=== PATIENT | male | born 1945 | race Caucasian/White ===

== ENCOUNTER → 2016-10-30 | Outpatient (CLI) | payer MEDICARE, OTHER ==
--- NOTE | 2016-10-30 21:44 | CONS ---
DATE OF CONSULTATION: This is a 71-year-old male patient with a known history of obstructive sleep apnea and that was established at the [facility] in [place]. The patient has been utilizing CPAP therapy for many years. The patient is coming in feeling tired and he reports his sleep quality has gotten worse. He is looking for further advice. He is interested in updating his CPAP machine knowing that this is the same machine the patient has used for more than 10 years. Note that he is currently snoring. He stops breathing even while on the treatment. He goes to bed around 10:00 p.m., wakes up at 4:00 a.m. in the morning and he is averaging around 6 hours of sleep on a daily basis. He wakes up tired and he is having trouble paying attention and memory concentration, and some symptoms of depression in addition. He has gained some weight over the years and he is up by around 5 to 10 pounds, yet there is no significant ( ) weight gain based on the reported history. PAST MEDICAL HISTORY: Obesity. Obstructive sleep apnea, hypothyroidism, coronary artery disease with previous bypass surgery. Surgical history includes coronary artery bypass surgery and back surgery. DRUG ALLERGIES: IV DYE. Outpatient medication list includes: 1. Levothyroxine. 2. Lasix. 3. Metoprolol. 4. Multivitamins. SOCIAL HISTORY: The patient is an ex-smoker. No history of alcohol. No history of IV drugs. FAMILY HISTORY: Negative for sleep apnea. REVIEW OF SYSTEMS: 14 point review of systems was done and the positive findings mentioned above in the history of present illness. BP is 119/63, pulse 79, respirations 18, temperature 98.1, saturation 92% on room air. [place] score is 14. BMI is 39.1. Neck size 19 inches. Weight is 287. GENERAL APPEARANCE: Calm, comfortable. HEENT: Short neck, crowding posterior pharynx. Mallampati class IV. LUNGS: Clear to auscultation. HEART: Sounds are regular rate and rhythm. Normal S1, S2. No S3. No murmurs. ABDOMEN: Soft, nontender. No organomegaly. EXTREMITIES: No edema. No cyanosis, or clubbing. IMPRESSION: 1. Obstructive sleep apnea, symptomatic. The patient has treated for sleep apnea for more than 10 years and coming in for reevaluation. 2. Hypersomnia. [place] score of 14. 3. Coronary artery disease previous bypass surgery. 4. Hypothyroidism. 5. Obesity with a body mass index of 39.1. PLAN: 1. Proceed with a split-night study. This will be a good location to confirm the presence of sleep apnea and proceed with a CPAP titration following that, during this, the patient will be given a different CPAP machine and his pressure will be updated and the patient will be given the appropriate mask interface. 2. Encourage weight loss. 3. Improve sleep hygiene measures. 4. Will continue to follow.
== END | disposition home or self-care (01) ==
LOC: SLEEP 14:26
PROVIDERS: ATTEND Internal Medicine Critical Care Medicine
DX: G47.33 Obstructive sleep apnea (adult) (pediatric) (principal); E66.9 Obesity, unspecified; E03.9 Hypothyroidism, unspecified; I25.10 Atherosclerotic heart disease of native coronary artery without angina pectoris; Z79.899 Other long term (current) drug therapy; Z87.891 Personal history of nicotine dependence; Z68.39 Body mass index [BMI] 39.0-39.9, adult; G47.10 Hypersomnia, unspecified
CPT/HCPCS: 99211

== ENCOUNTER 2018-09-04 17:18 | Emergency (ER) | payer MEDICARE, OTHER ==
[2018-09-04 17:26] VITALS: BP 146/75; PULSE 79; RESP 18; TEMP 98.7
--- NOTE | 2018-09-04 18:05 | ED ---
Fall HPI - General Chief Complaint: Fall Stated Complaint: fall 5' from ladder, head injury Time Seen by Provider: 09/04/18 17:29 Source: patient Mode of arrival: ambulatory - History of Present Illness Initial Comments: This is a 72-year-old male who states that 2 days ago he fell trying to step off a 3 foot high ladder and he struck the back was head on the right side. No loss of consciousness he does have a history of episodic dizziness he states nothing on the ordinary he does have a history of glaucoma and a history of cataract replacement. He was seen by his primary care provider today and due to some sluggishness of his left pupil was sent here for CAT scan or further evaluation. He denies any neck or back pain loss of function to his upper or lower extremities he does have a localized headache at the impact site had no open wounds reported. No fevers chills nausea vomiting sweats or other symptoms and no other modifying factors he is on no blood thinners. MD Complaint: fall - Related Data Home Medications Medication Instructions Recorded Confirmed Ascorbic Acid [Vitamin C] 500 mg PO DAILY 09/04/18 09/04/18 Aspirin [Adult Low Dose Aspirin EC] 81 mg PO DAILY 09/04/18 09/04/18 Furosemide Unknown 1 tab PO DAILY 09/04/18 09/04/18 Glucosamine Sulfate 500 mg PO DAILY 09/04/18 09/04/18 Levothyroxine Sodium [Synthroid] 25 mcg PO DAILY 09/04/18 09/04/18 Omeprazole Unknown 1 cap PO DAILY 09/04/18 09/04/18 Thiamine [Vitamin B-1] 50 mg PO DAILY 09/04/18 09/04/18 metFORMIN HCL [Glucophage] 250 mg PO QAM 09/04/18 09/04/18 traMADol HCL [Ultram] 50 mg PO BID PRN 09/04/18 09/04/18 Previous Rx's Medication Instructions Recorded Amoxicillin/Potassium Clav 1 tab PO Q12HR #20 tab 09/04/18 [Augmentin 875-125 Tablet] Ibuprofen 800 mg PO Q6HR PRN #20 tablet 09/04/18 Allergies Allergy/AdvReac Type Severity Reaction Status Date / Time Iodinated Contrast- Oral and AdvReac HEADACHE Verified 09/04/18 17:59 IV Dye Review of Systems ROS Statement: Those systems with pertinent positive or pertinent negative responses have been documented in the HPI. ROS Other: All systems not noted in ROS Statement are negative. Past Medical History Past Medical History: Heart Failure, Diabetes Mellitus, GERD/Reflux Additional Past Medical History / Comment(s): agent orange History of Any Multi-Drug Resistant Organisms: None Reported Past Surgical History: Adenoidectomy, Back Surgery, Coronary Bypass/CABG, Tonsillectomy Additional Past Surgical History / Comment(s): hydrocel Past Psychological History: PTSD Smoking Status: Former smoker Past Alcohol Use History: None Reported Past Drug Use History: None Reported General Exam - General Exam Comments Initial Comments: Is a well-developed well-nourished awake alert oriented times female he has a [place] Coma Scale of 15 Limitations: no limitations General appearance: alert, in no apparent distress Head exam: Present: normocephalic, other (Area contusion noted over the right parietal occipital scalp no step-off crepitation no foreign body.) Eye exam: Present: normal appearance, PERRL, EOMI. Absent: scleral icterus, conjunctival injection, periorbital swelling ENT exam: Present: normal exam, mucous membranes moist Neck exam: Present: normal inspection, full ROM. Absent: tenderness, meningismus, lymphadenopathy Respiratory exam: Present: normal lung sounds bilaterally. Absent: respiratory distress, wheezes, rales, rhonchi, stridor Cardiovascular Exam: Present: regular rate, normal rhythm, normal heart sounds. Absent: systolic murmur, diastolic murmur, rubs, gallop, clicks GI/Abdominal exam: Present: soft, normal bowel sounds. Absent: distended, tenderness, guarding, rebound, rigid Extremities exam: Present: normal inspection, full ROM, normal capillary refill. Absent: tenderness, pedal edema, joint swelling, calf tenderness Back exam: Present: normal inspection Neurological exam: Present: alert, oriented X3, CN II-XII intact Psychiatric exam: Present: normal affect, normal mood Skin exam: Present: warm, dry, intact, normal color. Absent: rash Course Vital Signs 09/04/18 17:21 Temperature 98.7 F Pulse Rate 79 Respiratory 18 Rate Blood Pressure 146/75 O2 Sat by Pulse 98 Oximetry Medical Decision Making - Medical Decision Making I did discuss the findings with the patient he will be discharged I will place him on medication for the sinusitis. - Radiology Data Radiology results: report reviewed (I did review the imaging and report evidence of sinusitis no intracranial findings are seen.), image reviewed Disposition Clinical Impression: Scalp contusion, Sinusitis, Fall Disposition: HOME SELF-CARE Condition: Good Prescriptions: Amoxicillin/Potassium Clav [Augmentin 875-125 Tablet] 1 tab PO Q12HR #20 tab Ibuprofen 800 mg PO Q6HR PRN #20 tablet PRN Reason: Pain Is patient prescribed a controlled substance at d/c from ED?: No Referrals: [facility] [Primary Care Provider] - 1-2 days
--- NOTE | 2018-09-04 18:33 | CT ---
EXAMINATION TYPE: CT brain wo con DATE OF EXAM: 09/04/2018 COMPARISON: None HISTORY: Head injury after fall CT DLP: 1127.4 mGycm Automated exposure control for dose reduction was used. FINDINGS: There is some cerebral cortical atrophy. There is no mass effect nor midline shift. There is no sign of intracranial hemorrhage. There is mild mucosal thickening in the ethmoid sinuses. There is fluid l evel in the left maxillary sinus. Calvarium is intact. IMPRESSION: MILD ATROPHY. NO ACUTE INTRACRANIAL ABNORMALITY. MILD SINUSITIS.
== END 2018-09-04 19:06 | disposition home or self-care (01) ==
LOC: EC 17:18
DX: S00.03XA Contusion of scalp, initial encounter (principal); J32.9 Chronic sinusitis, unspecified; I50.9 Heart failure, unspecified; K21.9 Gastro-esophageal reflux disease without esophagitis; E11.9 Type 2 diabetes mellitus without complications; F43.10 Post-traumatic stress disorder, unspecified; Z87.891 Personal history of nicotine dependence; Z79.84 Long term (current) use of oral hypoglycemic drugs; Z79.82 Long term (current) use of aspirin; Z79.899 Other long term (current) drug therapy; Z91.041 Radiographic dye allergy status; Z95.1 Presence of aortocoronary bypass graft; W11.XXXA Fall on and from ladder, initial encounter
CPT/HCPCS: 70450; 99283

== ENCOUNTER → 2018-12-26 | Outpatient (CLI) | payer OTHER ==
--- NOTE | 2018-12-26 20:49 | CT ---
"EXAMINATION TYPE: CT abdomen pelvis wo con DATE OF EXAM: 12/26/2018 COMPARISON: None HISTORY: Abominal swelling, mass. Pt said abdomen is hard to the touch. CT DLP: 1151 mGycm Automated exposure control for dose reduction was used. TECHNIQUE: Helical acquisition of images was performed from the lung bases through the pelvis. FINDINGS: There is abdominal distention which appears secondary to innumerable masses likely represen ting conglomerate lymphadenopathy. This extends throughout the abdomen and retroperitoneum into the p devin. Bladder wall demonstrates mild thickening. Atherosclerotic change of aorta with no evidence of aneury sm. Parapelvic cyst on the left suspected with no overt hydronephrosis or evidence of renal calculi. Tiny hypodensities in the posterior segment of the right lobe the liver and within the dome of the li regla are too small to characterize. The largest is seen at the dome of the liver measuring approximate ly 5 Hounsfield units and 9 mm most typical of cyst. No obvious gallstones. No free fluid. Multilevel degenerative disc disease noted. Appears to be sugge stion of previous surgery involving the lower lumbar spine correlate clinically. AIR WITHIN THE SI JOINT ON THE RIGHT NOTED COMPATIBLE WITH ARTHROPATHY EXTENDING INTO THE SOFT TISSUE S. PROSTATE HYPERTROPHY. IMPRESSION: INNUMERABLE SOFT TISSUE MASSES SEEN THROUGHOUT THE ABDOMEN, RETROPERITONEUM AND PELVIS RESULTING IN A BDOMINAL DISTENTION MOST LIKELY ON THE BASIS OF MASSIVE CONGLOMERATE LYMPHADENOPATHY. LYMPHOMA WOULD BE FELT TO BE THE MOST LIKELY ETIOLOGY, CORRELATE CLINICALLY. RECOMMEND A CONTRAST EXAM TO DETERMINE RELATIONSHIP OF THE MASS ATTEMPTED TO THE SMALL BOWEL WHICH IS NOT WELL DEMONSTRATED AND MAY BE COMPR ESSED DUE TO THE MASSIVE ADENOPATHY. A [place] level critical message alert has been initiated for ADITI Noguera via the [employer] | Critical Results System on 12/26/2018 8:45 PM. This message alert has been sent to ADITI Noguera via the preferences provided by the clinician for the receipt of Radiology Critical Findings. Message ID [id number]."
== END | disposition home or self-care (01) ==
LOC: RADCTMAIN 16:09
PROVIDERS: ATTEND Physician Assistant
DX: R14.0 Abdominal distension (gaseous) (principal)
CPT/HCPCS: 74176

== ENCOUNTER → 2019-01-12 | Outpatient (CLI) | payer OTHER ==
[2019-01-12 11:03] LABS: Blood Urea Nitrogen 30 mg/dL (9-20)
--- NOTE | 2019-01-12 12:52 | CT ---
EXAMINATION TYPE: CT abdomen pelvis wo/w con DATE OF EXAM: 01/12/2019 COMPARISON: 12/26/2018 HISTORY: Abnormal CT results. Abdominal swelling. CT DLP: 2757.3 mGycm Automated exposure control for dose reduction was used. TECHNIQUE: Helical acquisition of images was performed from the lung bases through the pelvis. CONTRAST: Performed with Oral Contrast and without and with IV Contrast, patient injected with 100 mL of Isovue M300. FINDINGS: LUNG BASES: Small hiatal hernia and paraesophageal adenopathy are partially visualized. Minimal bibas ilar subsegmental dependent atelectasis is also seen. LIVER/GB: There are scattered hepatic cysts measuring up to 1.6 cm another lesion that are too small to accurately characterize but favored to represent cysts. PANCREAS: Pancreas is somewhat ill-defined given the surrounding similar attenuated masses. No discre te ductal dilatation is identified. SPLEEN: The spleen is nonenlarged measuring 12.6 cm in craniocaudal dimension.. ADRENALS: No significant abnormality is seen. KIDNEYS: There is minimal left-sided hydronephrosis likely secondary to ureteral narrowing from the r etroperitoneal masses. 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 FREE AIR: No free air is visualized. ADENOPATHY: There is extensive intra-abdominal and pelvic adenopathy in the mesentery, retroperitone um, intraperitoneal, and visualized inferior mediastinum. This demonstrates the same which sign as it encases mesenteric vasculature without compressing the vasculature. This also encases and narrows th e third and fourth portions of the duodenum and displaces small bowel laterally. The largest conglome ration of numerous lymph nodes in the mid abdomen has an overall dimension on series 7 image 37 of 26 .1 x 16.7 cm in transverse by anterior posterior dimension and spanning the retroperitoneal and intra peritoneal locations. The largest left external chain iliac lymph node measures 5.3 x 3.6 cm and the largest visualized posterior mediastinal lymph node measures 2.4 x 1.9 cm. URINARY BLADDER: No significant abnormality is seen. OSSEOUS STRUCTURES: Extensive postsurgical changes of the spine and pelvis are seen with right iliac bone donor site for intervertebral disc autograft. Advanced degenerative changes are also seen of th e spine. Mild femoral acetabular arthropathy. Minimal levoscoliosis of the thoracolumbar junction may be positional. BOWEL: No dilated large or small bowel again bowel loops are displaced laterally due to the extensiv e mediastinal adenopathy and the third and fourth portion of the duodenum are narrowed and encased wi thout obstruction. OTHER: Moderate atherosclerosis of the abdominal aorta and its branches is noted. IMPRESSION: EXTENSIVE INTRA-ABDOMINAL , PELVIC AND POSTERIOR MEDIASTINAL ADENOPATHY MOST CHARACTERISTIC OF LYMPHO MA. LARGE MASSLIKE CONGLOMERATION ENCASES AND NARROWS THE THIRD AND FOURTH PORTIONS OF THE DUODENUM W ITHOUT OBSTRUCTION AND ENCASES MESENTERIC VASCULATURE. THIS ALSO DISPLACES SMALL BOWEL LOOPS LATERALL Y.
== END ==
LOC: RADCTMAIN 10:23
DX: R59.1 Generalized enlarged lymph nodes (principal); R93.3 Abnormal findings on diagnostic imaging of other parts of digestive tract
CPT/HCPCS: 82565; 84520; 74178; 36415; Q9967

== ENCOUNTER 2019-01-29 12:03 | Day surgery (SDC) | payer OTHER ==
[2019-01-29 12:54] LABS: Glucose,Whole Blood 106 mg/dL (75-99)
[2019-01-29 12:59] VITALS: RESP 16; TEMP 97.6
[2019-01-29 14:39] VITALS: BP 121/75; PULSE 76
--- NOTE | 2019-01-29 15:50 | CT ---
EXAMINATION TYPE: CT biopsy subcut tissue DATE OF EXAM: 01/29/2019 HISTORY: Abdominal mass COMPARISON: CT 01/12/2019 Maximal barrier technique was utilized. The skin overlying a suitable path to the retroperitoneal ma ss lesion was localized using CT and the overlying skin was prepped and draped. Lidocaine used for l ocal anesthesia. A skin felisa made with a scalpel. Using CT guidance, access was gained to the lesio n with a 17-gauge guide needle. Coaxial placement of an 18-gauge needle performed and core specimen s ubmitted to cytology. 2 passes were performed in all. Following the procedure no immediate complica tions. The patient is discharged in stable condition. Hemostasis achieved. IMPRESSION: SUCCESSFUL CT GUIDED CORE BIOPSY retroperitoneal mass. PATHOLOGY PENDING. THIS PROCEDURE WAS PERFOR MED BY THE UNDERSIGNED.
== END 2019-01-29 14:30 | disposition home or self-care (01) ==
LOC: RADPROMAIN 12:03
PROVIDERS: ATTEND Internal Medicine Hematology & Oncology
DX: C83.03 Small cell B-cell lymphoma, intra-abdominal lymph nodes (principal)
CPT/HCPCS: 77012; 88305; 88341; 88342

== ENCOUNTER → 2019-02-07 | Outpatient (CLI) | payer OTHER ==
--- NOTE | 2019-02-10 14:51 | PE ---
Nuclear medicine PET/CT HISTORY: Lymphoma, initial Patient received 9.1 mCi F-18 FDG intravenously in delayed scanning was performed from the skull base to the mid thighs. Localization and attenuation correction CT scan was performed. Correlation CT abdomen pelvis 01/12/2017 Neck and chest: There is adenopathy present in the left neck deep to the sternocleidomastoid muscle f rom the level of the hyoid bone extending into the supraclavicular location, supraclavicular nodes ar e present bilaterally with mild hypermetabolic uptake, SUV is 2.6. There is extensive mediastinal, field bpectoral adenopathy present. Nodes in present in the axilla bilaterally. Only mild radio pharmaceuti yanni uptake noted however. Coronary artery calcifications are present. Patient is post median sternoto my. Interstitial changes are present within the lungs. ABDOMEN: Extensive abdominal adenopathy present extending into the mesentery, retroperitoneal regions , bilateral iliac regions. Uptake is mild, SUV proximal 4.3, max SUV 4.8 in the abdomen, retroperiton eal adenopathy SUV 3.1, iliac adenopathy and left 3.2. Osseous structures are within normal limits, no hypermetabolic uptake. Postop changes noted at the rosanna mbosacral spine. IMPRESSION: Findings compatible with lymphoma.
== END | disposition home or self-care (01) ==
LOC: RADPETMAIN 14:04
PROVIDERS: ATTEND Internal Medicine Hematology & Oncology
DX: C83.88 Other non-follicular lymphoma, lymph nodes of multiple sites (principal)
CPT/HCPCS: 78815; A9552

== ENCOUNTER 2019-02-16 06:31 | Day surgery (SDC) | payer OTHER ==
[2019-02-12 13:16] VITALS: BMI 32.3
[~2019-02-16 06:31] MED LIST: LACTATED RINGERS 1,000 ML IV SCH
[2019-02-16 07:04] VITALS: TEMP 97.8
[2019-02-16 07:04] LABS: Glucose,Whole Blood 89 mg/dL (75-99)
[2019-02-16] MEDS ORDERED: PROPOFOL 10 MG/ML 20 ML VIAL IV ONE (07:22)
[2019-02-16 08:10] VITALS: BP 100/59; PULSE 66; RESP 18
--- NOTE | 2019-02-16 08:10 | PCN ---
PROCEDURE NOTE PROCEDURE: Bone marrow aspirate and biopsy. INDICATION: Staging for lymphoma. DESCRIPTION OF PROCEDURE: After obtaining consent from the patient, the procedure was performed in the endoscopy suite, and general anesthesia performed by anesthesia team. The patient was put in the left lateral decubitus position. The right posterior superior iliac crest was localized. Skin was cleansed with ChloraPrep, all sterile procedures were followed. Monoject needle was inserted about 5 mL aspirate was obtained without a core biopsy. Pressure applied afterwards. There was negligible blood loss. The patient tolerated procedure very well without any immediate complications. MMODL / IJN: [id number] /
[2019-02-16 09:46] LABS: Basophils # (A) 0.2 k/uL (0-0.2); Basophils % (A) 1 %; Eosinophils # (A) 4.2 k/uL (0-0.7); Eosinophils % (A) 32 %; HCT 45.7 % (39.0-53.0); HGB 14.6 gm/dL (13.0-17.5); Lymphocytes # (A) 2.2 k/uL (1.0-4.8); Lymphocytes % (A) 17 %; MCH 29.3 pg (25.0-35.0); MCV 91.5 fL (80.0-100.0); Mean Platelet Volume 9.5; Monocytes % (A) 7 %; Neutrophils # (A) 5.6 k/uL (1.3-7.7); Neutrophils % (A) 42 %; Platelet Count 205 k/uL (150-450); RDW 13.7 % (11.5-15.5); WBC 13.4 k/uL (3.8-10.6)
== END 2019-02-16 08:23 | disposition home or self-care (01) ==
LOC: OR 06:31
PROVIDERS: ATTEND Internal Medicine Hematology & Oncology
DX: C91.10 Chronic lymphocytic leukemia of B-cell type not having achieved remission (principal); I25.10 Atherosclerotic heart disease of native coronary artery without angina pectoris; E66.9 Obesity, unspecified; Z68.32 Body mass index [BMI] 32.0-32.9, adult; I10 Essential (primary) hypertension; E03.9 Hypothyroidism, unspecified; F43.10 Post-traumatic stress disorder, unspecified; G47.33 Obstructive sleep apnea (adult) (pediatric); K21.9 Gastro-esophageal reflux disease without esophagitis; Z95.1 Presence of aortocoronary bypass graft; Z87.891 Personal history of nicotine dependence; Z91.041 Radiographic dye allergy status; Z79.84 Long term (current) use of oral hypoglycemic drugs; Z79.82 Long term (current) use of aspirin; Z79.890 Hormone replacement therapy; Z79.899 Other long term (current) drug therapy; Z98.42 Cataract extraction status, left eye; Z98.41 Cataract extraction status, right eye; Z98.1 Arthrodesis status
CPT/HCPCS: 85025; 38222; J2704

== ENCOUNTER → 2019-08-15 | Outpatient (CLI) | payer OTHER ==
--- NOTE | 2019-08-17 11:16 | PE ---
EXAMINATION TYPE: PET CT fusion skull to thigh DATE OF EXAM: 08/15/2019 COMPARISON: PET/CT February 07, 2019 HISTORY: Lymphoma diagnosed on biopsy in January completed chemotherapy July 17, 2019 TECHNIQUE: Following the intravenous administration of 12.3 mCi of F-18 FDG, whole body images are p erformed from the skull base to the midthigh. Images are reviewed on the computer in the coronal, ax ial, and sagittal planes. Reconstructed rotating images are created on independent workstation and r eviewed on the computer. A noncontrast CT is performed in conjunction with the PET scan. SCAN: Subsequent Scan FINDINGS: Mediastinum mean SUV: 1.41s Liver mean SUV: 2.08 SKULL BASE AND NECK: Marked improvement in abnormal enlarged bilateral neck lymph nodes which appear less prominent in size and number bilaterally. No suspicious hypermetabolic uptake is present. CHEST, MEDIASTINUM, AND HILAR REGION: Marked interval improvement in abnormal axillary adenopathy. A few tiny residual lymph nodes are present bilaterally. No new areas of abnormal hypermetabolic uptake . ABDOMEN AND PELVIS: Abnormal adenopathy in the abdomen remains present with confluent appearance and mesenteric fat stranding or edema. Abnormal retroperitoneal adenopathy still seen for reference left paraaortic lymph node measures 2.3 x 2.0 cm axial image 172 infrarenal location. There is however imp rovement in size and degree of mass effect. No abnormal pelvic or groin adenopathy on current study with marked improvement on current study. Onl y subcentimeter lymph nodes are now present. No new areas of abnormal hypermetabolic uptake. OSSEOUS STRUCTURES: No new areas of suspicious hypermetabolic uptake. OTHER CT: Moderate to severe mucosal thickening right maxillary sinus is now present. Post-CABG changes with mediastinal clips and sternal wires is redemonstrated. There is background mod erate emphysematous change most prominent in the upper lungs There are a few scattered hypodense lesions in the liver most prominent in upper aspect felt stable f elt to reflect simple hepatic thin-walled cysts Multilevel spurring and disc space narrowing in the thoracolumbar spine. Slight S-shaped scoliotic cu rvature. Moderate narrowing in both hip joints.. Surgical changes lumbosacral junction redemonstrated . IMPRESSION: Marked improvement in abnormal adenopathy with persistent abnormal abdominal lymph nodes and local mass effect. No suspicious hypermetabolic uptake on current study in any lymph nodes.
== END | disposition home or self-care (01) ==
LOC: RADPETMAIN 08:46
PROVIDERS: ATTEND Internal Medicine Hematology & Oncology
DX: C82.13 Follicular lymphoma grade II, intra-abdominal lymph nodes (principal); Z92.21 Personal history of antineoplastic chemotherapy
CPT/HCPCS: 78815; A9552

== ENCOUNTER → 2020-02-26 | Outpatient (CLI) | payer OTHER ==
--- NOTE | 2020-02-29 16:44 | PE ---
EXAMINATION TYPE: PET CT fusion skull to thigh DATE OF EXAM: 02/26/2020 CLINICAL HISTORY: 74-year-old male C82.13, restaging lymphoma. TECHNIQUE: Following the intravenous administration of 9.58 mCi of F-18 FDG, whole body images are performed from the skull base to the midthigh. Images are reviewed on the computer in the coronal, a xial, and sagittal planes. Reconstructed rotating images are created on independent workstation and reviewed on the computer. A localization and attenuation correction CT is performed in conjunction with the PET scan. Glucose level: 100 mg/dL COMPARISON: 08/15/2019 and 02/07/2019. FINDINGS: PET: Physiologic FDG uptake within the neck. Some muscular uptake noted particularly at the right shoulder but also mild on the other side. Stable 1.3 cm nonmetabolic cutaneous/subcutaneous nodule right paramedian anterior mid chest, probabl e sebaceous cyst. 6 mm peripheral right upper lobe pulmonary nodule, axial image 78 measuring approximately 5 mm on , not clearly seen on 02/07/2019. Follow-up recommended. This is too small for adequate PET rob racterization. Physiologic FDG uptake within the chest. Some muscular uptake along the right lateral intercostal mus culature. Average liver SUV: 2.2. Redemonstrated is extensive mesenteric, retroperitoneal, and upper abdominal lymphadenopathy. Largest retroperitoneal is left paraaortic at 1.6 cm short axis, unchanged. Similar extensive mesenteric lymphadenopathy. Short axis lymph nodes measure up to 1.9 cm on the left side of the abdomen and 1.7 cm right side of the abdomen. Associated luciano mesentery. 1.5 cm bilateral common iliac chain lymph nodes, unchanged from recent prior. These do not show any associated increased hypermetabolism. Physiologic FDG uptake within the pelvis. ATTENUATION CORRECTION CT: Trace air-fluid level left maxillary sinus. Mastoid air cells appear clear. Scattered small cervical lymph nodes are present in the lower neck, unchanged from recent prior. Median sternotomy wires are present with post-CABG changes. Heart borderline enlarged without perica rdial effusion. Bovine configuration to the aortic arch. Large caliber to the main right and left pu lmonary arteries measuring up to 3.1 cm suggesting underlying pulmonary arterial hypertension. Scatt ered small mediastinal lymph nodes are redemonstrated measuring up to 7 mm in the precarinal region. No thoracic lymphadenopathy by CT size criteria. No enlarging thoracic lymph nodes. Hazy dependent at electasis in the lungs. Moderate to advanced upper to mid lung centrilobular emphysema. No consolidat ion or pleural effusion. Scattered hepatic hypodensities suggestive of cysts are redemonstrated measuring up to 1.8 cm. No dil ated small bowel, free fluid, or free air. Sigmoid diverticulosis. Mild stool burden. No pericolonic inflammatory change. Mild circumferential bladder wall thickening. Prostate gland measures 4.1 cm wide. No abnormal fluid collection in the pelvis or pelvic lymphadenopathy. Bones: Mild degenerative change of both hips and SI joints. Bony irregularity posterior right iliac b one likely from prior bone graft harvesting. Posterior lower lumbar fusion changes. Degenerative de la vega ges within the remainder of the lumbar spine. Degenerative change of both shoulders. Cervical spondyl osis. No osseous destructive process seen. IMPRESSION: 1. Unchanged size and appearance (as compared to 08/15/2019) of extensive upper abdominal, mesenteric , retroperitoneal, and bilateral common iliac chain lymphadenopathy measuring up to 1.9 cm short axis . Again, there is no associated hypermetabolism. No new or progressive lymphadenopathy is seen. Findi ngs again noted to be significantly improved from the 02/07/2019 PET/CT. 2. A 6 mm right upper lobe pulmonary nodule previously measured 5 mm on 08/15/2019 and was not clearl y seen on 02/07/2019. Too small for adequate PET characterization. Recommend attention on continued field rveillance to exclude a small early suspicious nodule. 3. COPD with moderate emphysema. Pulmonary arterial hypertension. Sigmoid diverticulosis. Mild circum ferential bladder wall thickening could represent chronic bladder wall hypertrophy or cystitis. Clini rhiannon correlate. 4. Small air-fluid level left maxillary sinus. Correlate to exclude acute sinusitis.
== END | disposition home or self-care (01) ==
LOC: RADPETMAIN 10:18
PROVIDERS: ATTEND Internal Medicine Hematology & Oncology
DX: R91.1 Solitary pulmonary nodule (principal); J43.2 Centrilobular emphysema; I27.21 Secondary pulmonary arterial hypertension; K57.30 Diverticulosis of large intestine without perforation or abscess without bleeding; N32.89 Other specified disorders of bladder
CPT/HCPCS: 78815; A9552

== ENCOUNTER 2020-03-09 07:16 | Day surgery (SDC) | payer OTHER ==
[2020-03-07 11:44] VITALS: BMI 32.5
[2020-03-09 07:45] VITALS: RESP 16; TEMP 98.3
[2020-03-09 07:54] LABS: Glucose,Whole Blood 110 mg/dL (75-99)
[2020-03-09] MEDS ORDERED: PROPOFOL 10 MG/ML 20 ML VIAL IV ONE (08:23)
[2020-03-09] MEDS ORDERED: MIDAZOLAM 2 MG/2 ML VIAL ONE (08:23)
--- NOTE | 2020-03-09 08:40 | P.PCN ---
Date of Procedure: 03/09/20 Procedure(s) Performed: BRIEF HISTORY: Patient is a 74-year-old pleasant white male scheduled for an elective colonoscopy as a part of evaluation of chronic diarrhea for the last several months duration. He has bowel movements anywhere from 5-6 a day which are loose to watery in consistency. Last colonoscopy was more than 10 years ago PROCEDURE PERFORMED: Colonoscopy with random biopsies. PREOPERATIVE DIAGNOSIS: Chronic diarrhea of several months duration. IV sedation per Anesthesia. PROCEDURE: After informed consent was obtained, the patient, was brought into the endoscopy unit. IV sedation was administered by Anesthesia under continuous monitoring. Digital rectal examination was normal. Initially the Olympus CF-160 flexible video colonoscope was then inserted in the rectum, gradually advanced into the cecum without any difficulty. Careful examination was performed as the scope was gradually being withdrawn. Ileocecal valve and the appendiceal orifice were visualized and appeared normal. Prep was excellent. Mucosa of the cecum, ascending colon, transverse colon, descending colon, sigmoid colon, and rectum appeared normal. Random biopsies were done from the ascending and descending colon to rule out microscopic/collagenous colitis Retroflexion was performed in the rectum and no lesions were seen. The patient tolerated the procedure well. IMPRESSION: Normal-appearing colon from rectum to cecum with no evidence of colitis or colorectal neoplasia . RECOMMENDATIONS: Findings of this examination were discussed with the patient well as his family. He was advised to follow with the biopsy results. He'll be seen in office in 2-3 weeks..
[2020-03-09 09:00] VITALS: BP 118/63; PULSE 69
== END 2020-03-09 09:38 | disposition home or self-care (01) ==
LOC: ORWHC2ENDO 07:16
PROVIDERS: ATTEND Internal Medicine Gastroenterology
DX: K52.9 Noninfective gastroenteritis and colitis, unspecified (principal); I10 Essential (primary) hypertension; E78.5 Hyperlipidemia, unspecified; J45.909 Unspecified asthma, uncomplicated; E11.9 Type 2 diabetes mellitus without complications; E07.9 Disorder of thyroid, unspecified; Z91.041 Radiographic dye allergy status; Z79.890 Hormone replacement therapy; Z79.82 Long term (current) use of aspirin; Z79.899 Other long term (current) drug therapy
CPT/HCPCS: 88305; 45380; J2250; J2704

== ENCOUNTER → 2020-03-30 | Outpatient (CLI) | payer OTHER ==
--- NOTE | 2020-03-30 12:45 | CONS ---
CONSULTATION DATE OF SERVICE: 03/30/2020 A 74-year-old gentleman who has been evaluated [facility] for obstructive sleep apnea-hypopnea syndrome. HISTORY OF PRESENT ILLNESS/SLEEP-WAKE EVALUATION: The patient has history of obstructive sleep apnea since 2004. He never had sleep studies since that time. His sleep schedule from 11 p.m. to 7 am. He is using CPAP, but he still snores and wakes up from sleep 3 times with nocturia. Also, he wakes up with a dry mouth and sweating. In the morning, he wakes up tired with difficulties to pay attention, has problems with memory, concentration, depression, anxiety. [place] Sleepiness Scale significantly increased to 15. He take one nap during the day. Usually, he does not feel refreshed after a nap. Does not see any dreams during naps. No history of hypnagogic hallucinations, but he answers that he may have some weakness in the body during excitement. PAST MEDICAL HISTORY: Positive for coronary artery disease, status post CABG, non-Hodgkin's lymphoma of the stomach diagnosed in 2018, status post chemotherapy, leg pain, hypothyroidism, history of diabetes mellitus in the past, hyperlipidemia. MEDICATIONS: Tramadol, aspirin, water pill, levothyroxine, statin for cholesterol, patient does not remember the name. REVIEW OF SYSTEMS: Multiple awakenings from sleep, tiredness and sleepiness during the day. SOCIAL HISTORY: Positive for smoking up to 3 packs per day for around 20 years, subsequently about 60 pack year history of smoking, quit in 1981. Alcohol consumption none at the present time. PHYSICAL EXAM: gentleman without distress, BP 113/70, HR 76, RR 16, height 5, 11, weight 252, body mass index 35.1, temperature 97.6, oxygen saturation on room air 95%. OROPHARYNX: Low position of soft palate, wide neck is 17 inches in circumference. ABDOMEN: Obese. EXTREMITIES: 1+ bilateral ankle edema. IMPRESSION: 1. Snoring, small oropharyngeal air space, wide neck, history of obstructive sleep apnea-hypopnea syndrome. Patient is on treatment with CPAP but has multiple awakenings from sleep and sleepiness during the day. Sleep study was not done for more than 15 years. 2. Patient is on treatment with tramadol which may increase the risk for central sleep apnea. 3. Coronary artery disease, status post CABG. 4. History of non Hodgkin lymphoma of the stomach, status post chemotherapy. 5. History of back problems, status post spinal fusion. 6. History of diabetes mellitus in the past. Recently blood sugar normalized. 7. Hypothyroidism, on levothyroxine replacement. 8. Hyperlipidemia. PLAN: 1. Polysomnography for evaluation of patient's breathing during sleep. 2. CPAP/BiPAP titration if sleep study confirms obstructive sleep apnea-hypopnea syndrome. 3. Preferable position during sleep on the side. 4. No driving if patient feels any sleepiness. 5. I will see patient for follow up visit to explain results of testing and following plan. Thank you very much for referring this patient for consultation. Sincerely, Jeb Montenegro MD, PhD, FAASM Diplomat of [employer] [facility] [place] MMJEFFREY / UMAIR: [id number] /
== END | disposition home or self-care (01) ==
LOC: SLEEP 10:54
PROVIDERS: ATTEND Internal Medicine
DX: G47.33 Obstructive sleep apnea (adult) (pediatric) (principal); I25.10 Atherosclerotic heart disease of native coronary artery without angina pectoris; G47.31 Primary central sleep apnea; Z85.72 Personal history of non-Hodgkin lymphomas; E78.5 Hyperlipidemia, unspecified; E03.9 Hypothyroidism, unspecified; Z79.890 Hormone replacement therapy; Z95.1 Presence of aortocoronary bypass graft; Z98.1 Arthrodesis status
CPT/HCPCS: 99211

== ENCOUNTER → 2020-09-02 | Outpatient (CLI) | payer OTHER ==
--- NOTE | 2020-09-05 18:22 | PE ---
Nuclear medicine PET/CT HISTORY: Lymphoma, subsequent Patient received 12.2 mCi F-18 FDG intravenously delayed scanning was performed from skull base to th e mid thighs. Localization and attenuation correction CT scan was performed. Correlation to prior nuclear medicine PET/CT 02/26/2020 Chest and neck: There is no significant interval change. No suspicious hypermetabolic uptake. No evid ent cervical or supraclavicular adenopathy. The right upper lobe nodular density is stable. Shotty nodes within the mediastinum are again noted. No suspicious uptake. There are coronary artery calcifications. No pleural or pericardial effusion. ABDOMEN: Too numerous to count mesenteric nodules are again noted which show approximately the same d istribution and size. No suspicious uptake. There is no ascites. Hypodensities within the liver are u nchanged. Diverticular change present within the sigmoid colon. No change in pelvic nodes. Osseous structures show no suspicious uptake IMPRESSION: Essentially stable exam. No suspicious hypermetabolic uptake.
== END | disposition home or self-care (01) ==
LOC: RADPETMAIN 07:58
PROVIDERS: ATTEND Internal Medicine Hematology & Oncology
DX: C82.13 Follicular lymphoma grade II, intra-abdominal lymph nodes (principal); Z92.21 Personal history of antineoplastic chemotherapy
CPT/HCPCS: 78815; A9552

== ENCOUNTER → 2021-08-25 | Outpatient (CLI) | payer OTHER ==
--- NOTE | 2021-08-25 15:50 | CT ---
EXAMINATION TYPE: CT chest wo con DATE OF EXAM: 08/25/2021 COMPARISON: None HISTORY: cough, abnormal cxr CT DLP: 622.[address] of the chest was performed with lung and mediastinal window settings submitted. The la ck of contrast limits evaluation of the vascular, mediastinal and parenchymal structures including th e upper abdomen. LUNGS: 5 mm right upper lobe nodular density. Emphysematous change noted moderate in degree. Scattere d subpleural fibrosis. No pleural effusion or airspace consolidation. MEDIASTINUM/MICHELLE: Thoracic aorta is of normal caliber with limited evaluation given lack of contrast . The heart is not enlarged. No evidence for mediastinal mass. No lymph nodes greater than 1cm. UPPER ABDOMEN: Extensive adenopathy throughout the small bowel mesentery which is partially imaged. OTHER: No significant other abnormality. IMPRESSION: 1. Subpleural fibrosis and emphysematous change. Stable right upper lobe 5 mm nodule. 2.Extensive adenopathy throughout the small bowel mesentery which is partially imaged.
== END | disposition home or self-care (01) ==
LOC: RADCTMAIN 15:23
DX: J94.1 Fibrothorax (principal); R91.1 Solitary pulmonary nodule; J43.9 Emphysema, unspecified; R59.0 Localized enlarged lymph nodes
CPT/HCPCS: 71250

== ENCOUNTER → 2021-09-01 | Outpatient (CLI) | payer OTHER ==
--- NOTE | 2021-09-01 15:10 | PE ---
"EXAMINATION TYPE: PET CT fusion skull to thigh DATE OF EXAM: 09/01/2021 COMPARISON: Prior PET/CT September 02, 2020 and older studies. Most recent chest CT August 25, 2021. HISTORY: Lymphoma diagnosed on biopsy in January 2019 TECHNIQUE: Following the intravenous administration of 9.48 mCi of F-18 FDG, whole body images are p erformed from the skull base to the midthigh. Images are reviewed on the computer in the coronal, ax ial, and sagittal planes. Reconstructed rotating images are created on independent workstation and r eviewed on the computer. A localization and attenuation correction CT is performed in conjunction w ith the PET scan. Blood glucose level equals 125. SCAN: Subsequent Scan FINDINGS: SKULL BASE AND NECK: No new hypermetabolic lymph nodes identified. CHEST, MEDIASTINUM, AND HILAR REGION: Background mild to moderate underlying emphysematous changes re demonstrated. Worsening groundglass opacities along the fissures and in the periphery with mild hyper metabolic uptake superior aspect right lower lobe periphery axial image 104 suspicious for developing acute infectious process. No recurrent abnormal hypermetabolic enlarged lymph nodes. ABDOMEN AND PELVIS: Nonspecific uptake right colon redemonstrated. Persistent enlarged lymph nodes th roughout the retroperitoneum mediastinum with luciano mesentery appearance. No new abnormal hypermetabo lic lymph nodes identified. Areas of slight increased uptake right pelvis that appear to correspond t o the course of right ureter are redemonstrated. No new enlarged groin lymph nodes. OSSEOUS STRUCTURES: Mild uptake left initial tuberosity suspicious for inflammatory change at tendon insertion. OTHER CT: Dependent fluid left maxillary sinus now seen. Post-CABG changes with mediastinal clips and sternal wires is redemonstrated. There is background low lung volumes redemonstrated. Stable mild cardiomegaly. There are a few scattered hypodense lesions in the liver most prominent in upper aspect felt stable f elt to reflect simple hepatic thin-walled cysts Multilevel spurring and disc space narrowing in the thoracolumbar spine. Slight S-shaped scoliotic cu rvature. Moderate narrowing in both hip joints.. Surgical changes lumbosacral junction redemonstrated . IMPRESSION: 1. No new areas of abnormal hypermetabolic uptake to suggest active lymphoma recurrence. Persistent a bnormal enlarged retroperitoneal or mesenteric lymph nodes with luciano mesentery appearance unchanged from most recent PET/CT. 2. Worsening groundglass opacities with mild hypermetabolic uptake peripheral superior aspect right l ower lobe, in current environment covid-19 infection needs to be excluded. Correlate clinically. A Yellow level critical message alert has been initiated for Dylan Oliveira MD via the [employer] 36 0 | Critical Results System on 09/01/2021 3:07 PM. This message alert has been sent to Dylan Oliveira MD via the preferences provided by the clinician for the receipt of Radiology Critical Findings. [facility] – [place] [id number]."
== END | disposition home or self-care (01) ==
LOC: RADPETMAIN 08:35
PROVIDERS: ATTEND Internal Medicine Hematology & Oncology
DX: C82.13 Follicular lymphoma grade II, intra-abdominal lymph nodes (principal); R91.8 Other nonspecific abnormal finding of lung field
CPT/HCPCS: 78815; A9552

== ENCOUNTER → 2022-06-05 | Outpatient (CLI) | payer OTHER ==
--- NOTE | 2022-06-05 16:42 | US ---
EXAMINATION TYPE: US thyroid st tissue head/neck DATE OF EXAM: 06/05/2022 COMPARISON: PET/CT 05/11/2022. 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 GLAND SIZE: Right Lobe: 5.0 x 1.6 x 1.1 cm Overall Parenchyma: homogenous Left Lobe: 3.3 x 1.0 x 0.96 cm Overall Parenchyma: homogeneous Isthmus Thickness: 0.39 cm NODULES RIGHT: # of nodules measured on right: 0 LEFT: # of nodules measured on left: 0 ISTHMUS: # of nodules measured in the isthmus: 0 Bilateral neck scanned, multiple prominent lymph nodes lack a fatty hilum. Largest measured bilatera lly: Right neck; 2.3 x 1.1 x 1.2cm. Left neck; 1.6 x 1.6 x 1.4cm Thyroid slightly limited by body habitus, although no abnormalities noted within the thyroid. IMPRESSION: 1. No evidence thyroid nodules. 2. Multiple large lymph nodes which have an abnormal morphology and instrument increased FDG activit y on prior PET on 05/11/2022.
== END | disposition home or self-care (01) ==
LOC: RADUSWWP 15:38
PROVIDERS: ATTEND Internal Medicine Hematology & Oncology
DX: C82.13 Follicular lymphoma grade II, intra-abdominal lymph nodes (principal)
CPT/HCPCS: 76536

== ENCOUNTER → 2022-10-19 | Outpatient (CLI) | payer MEDICARE, OTHER ==
--- NOTE | 2022-10-20 07:50 | PE ---
EXAMINATION TYPE: PET CT fusion skull to thigh DATE OF EXAM: 10/19/2022 COMPARISON: Prior PET/CT May 11, 2022 and older studies HISTORY: Lymphoma progress study. Originally diagnosed January 2019 on gastric biopsy . Completed chemoth erapy January 2021. TECHNIQUE: Following the intravenous administration of 11.48 mCi of F-18 FDG, whole body images are performed from the skull base to the midthigh. Images are reviewed on the computer in the coronal, a xial, and sagittal planes. Reconstructed rotating images are created on independent workstation and reviewed on the computer. A localization and attenuation correction CT is performed in conjunction with the PET scan. Blood glucose level equals 105 SCAN: Subsequent Scan FINDINGS: Mean SUV mediastinum: 1.03 Mean SUV liver: 1.73 SKULL BASE AND NECK: Marked interval improvement in abnormal hypermetabolic slightly enlarged neck a denopathy bilaterally. No new or residual abnormal hypermetabolic lymph nodes seen on current study. CHEST, MEDIASTINUM, AND HILAR REGION: Background mild to moderate underlying emphysematous change is redemonstrated. No new areas of abnormal hypermetabolic uptake in the prominent and slightly enlarged thoracic lymph nodes throughout the mediastinum ABDOMEN AND PELVIS: Some nonspecific bowel uptake redemonstrated. Persistent enlarged lymph nodes thr oughout the retroperitoneum and mediastinum with luciano mesentery appearance. No new abnormal hypermet abolic lymph nodes identified. Normal excretion redemonstrated. No new enlarged groin lymph nodes. No abnormal hypermetabolic uptake in the pelvis OSSEOUS STRUCTURES: Mild uptake left ischial tuberosity suspicious for inflammatory change at tendon insertion. No new areas of abnormal hypermetabolic uptake. OTHER CT: Posterior-inferior mucosal thickening left maxillary sinus now seen. Post-CABG changes with mediastinal clips and sternal wires is redemonstrated. There is background low lung volumes redemonstrated. Stable mild cardiomegaly. There are a few scattered hypodense lesions in the liver most prominent in upper aspect felt stable f elt to reflect simple hepatic thin-walled cysts Multilevel spurring and disc space narrowing in the thoracolumbar spine. Slight S-shaped scoliotic cu rvature. Moderate narrowing in both hip joints.. Surgical changes lumbosacral junction redemonstrated . IMPRESSION: Complete positive treatment response current study. No new or residual areas of abnormal hypermetabol ic uptake currently. Persistent markedly abnormal enlarged retroperitoneal or mesenteric lymph nodes with luciano mesentery appearance unchanged from most recent PET/CT. Improved size in the neck and thor acic adenopathy noted.
== END | disposition home or self-care (01) ==
LOC: RADPETMAIN 08:18
PROVIDERS: ATTEND Internal Medicine Hematology & Oncology
DX: C82.13 Follicular lymphoma grade II, intra-abdominal lymph nodes (principal); R59.0 Localized enlarged lymph nodes
CPT/HCPCS: 78815; A9552

== ENCOUNTER → 2023-05-10 | Outpatient (CLI) | payer OTHER ==
--- NOTE | 2023-05-12 07:02 | PE ---
EXAMINATION TYPE: PET CT fusion skull to thigh DATE OF EXAM: 05/10/2023 CLINICAL INDICATION:Male, 77 years old with history of C82.13; TECHNIQUE: Following the intravenous administration of 9.9 mCi of F-18 FDG, whole body images are p erformed from the skull base to the midthigh. Images are reviewed on the computer in the coronal, ax ial, and sagittal planes. Reconstructed rotating images are created on independent workstation and r eviewed on the computer. A non-contrast CT is performed in conjunction with the PET scan. Glucose l evel 111 mg/dL CT DLP: 505 mGycm, Automated exposure control for dose reduction was used. COMPARISON: CT 06/27/2021, PET/CT 10/19/2022, FINDINGS: Mediastinal SUV mean is 2.4. Hepatic parenchyma SUV mean is 3.2. SKULL BASE AND NECK: No suspicious radiotracer activity. No enlarged FDG avid lymph nodes identified. CHEST, MEDIASTINUM, AND HILAR REGION: No suspicious radiotracer activity. No enlarged FDG avid lymph nodes identified. ABDOMEN AND PELVIS: Persistent luciano mesentery with mesenteric adenopathy throughout the abdomen. There is low levels rad iotracer uptake within the left nodes max SUV 2.1 MUSCULOSKELETAL STRUCTURES: No suspicious radiotracer activity. OTHER CT: : Lenses are not visualized in the globes. Coronary artery marked severe atherosclerosis. T here is mild gynecomastia changes. Sternotomy wires are present. There is mild enlarged heart. The pu lmonary trunk is dilated up to 2.6 cm. Hepatic cysts are present. Scattered clonic diverticula are pr esent. Suspected postsurgical changes of the sacrum and right iliac bone without suspicious FDG activ ity. IMPRESSION: Relatively stable exam with persistent luciano mesentery with scattered conglomerate mesenteric lymph n odes. No change in low levels of radiotracer uptake within these mesenteric lymph nodes which are bel ow background levels.
== END | disposition home or self-care (01) ==
LOC: RADPETMAIN 12:26
PROVIDERS: ATTEND Internal Medicine Hematology & Oncology
DX: C82.13 Follicular lymphoma grade II, intra-abdominal lymph nodes (principal); R59.0 Localized enlarged lymph nodes
CPT/HCPCS: 78815; A9552

== ENCOUNTER → 2023-09-03 | Outpatient (CLI) | payer OTHER ==
--- NOTE | 2023-09-06 15:40 | MR ---
EXAMINATION TYPE: MR shoulder RT wo con DATE OF EXAM: 09/03/2023 COMPARISON: None HISTORY: Rt shoulder pain TECHNIQUE: Multiplanar, multisequence imaging of the right shoulder is performed without contrast. FINDINGS: There is marked osteoarthritic change of the AC joint and glenohumeral joint. There is superior sublu xation of the glenohumeral joint. There is a large joint effusion. There are large cysts cysts within the humeral head is complete loss of the articular cartilage. There are complete tears of the infraspinatus, supraspinatus and subscapularis tendons with marked re traction medially. There is avulsion of the the biceps tendon and biceps anchor and large tear of the superior cartilagi nous labrum. IMPRESSION: 1. Complete tears with avulsion and retraction of the supraspinatus, infraspinatus and subscapularis muscles and tendons. 2. Large joint effusion. 3. Marked osteoarthritic change of the AC joint and glenohumeral joint is described above 4. Tear of the biceps anchor and tear of the superior cartilaginous labrum consistent with a large SL AP injury.
== END | disposition home or self-care (01) ==
LOC: RADMRIMAIN 08:55
DX: S46.011A Strain of muscle(s) and tendon(s) of the rotator cuff of right shoulder, initial encounter (principal); M25.411 Effusion, right shoulder; M19.011 Primary osteoarthritis, right shoulder

== ENCOUNTER → 2023-10-10 | Outpatient (CLI) | payer OTHER ==
[2023-10-10 15:24] LABS: ALT 26 U/L (10-49); AST 23 U/L (14-35); Chol/HDL Ratio 5.09 Ratio; LDL Cholesterol,Calculated 114.8 mg/dL (0.0-131.0); VLDL Calculation 17.82 mg/dL (5.00-40.00)
== END | disposition home or self-care (01) ==
LOC: LABWHC1 11:29
PROVIDERS: ATTEND Internal Medicine Cardiovascular Disease
DX: E78.2 Mixed hyperlipidemia (principal)
CPT/HCPCS: 36415; 80061; 84450; 84460

== ENCOUNTER → 2023-11-30 | Outpatient (CLI) | payer OTHER ==
--- NOTE | 2023-12-10 15:00 | MR ---
EXAMINATION TYPE: MR shoulder LT wo/w con DATE OF EXAM: 11/30/2023 COMPARISON: NONE HISTORY: 78-year-old male C82.13, Left shoulder pain, hx lymphoma. Technique: Multiplanar, multisequence images of the left shoulder were obtained before and after admi nistration of 12 mL intravenous Gadobutrol gadolinium contrast. FINDINGS: Nonvisualization of the long head biceps tendon, likely torn and retracted. The majority, if not all, of the subscapularis tendon appears to be torn. Mild to moderate fatty infi ltration. There is a massive full thickness tear involving the entire supraspinatus and infraspinatus tendons. The stumps are severely retracted by up to 7 cm, with some portions located medially up to the level of the scapular neck. Moderate to severe fatty infiltration of the muscle bellies. There is secondary instability of the glenohumeral joint with superior glenohumeral joint subluxation and bony abutment of the humeral head with the undersurface of the acromion. Reactive subchondral ma rrow edema and cystic change is present here. Large areas of full-thickness cartilage loss especially along the humeral head with marginal spurring. Moderate joint effusion and mild synovitis is present throughout. Severe degenerative change acromioclavicular joint with prominent marginal spurring. Patchy red marrow hyperplasia is present. There is a small 7 mm cutaneous/subcutaneous nodule posteriorly at the left shoulder, coronal image 2 8 that may have minimal post contrast-enhancement. IMPRESSION: 1. End stage rotator cuff arthropathy. Massive rotator cuff tears are present with the supraspinatus and infraspinatus tendons retracted up to 7 cm to the scapular neck. Most, if not all of the subscapu marquis tendon also appears to be torn. 2. Moderate to severe fatty infiltration of the supraspinatus and infraspinatus muscles. Mild to mode rate of the subscapularis muscle. 3. Secondary glenohumeral joint instability with bony abutment of the humeral head to the undersurfac e of the acromion. Moderate joint effusion and mild chronic synovitis. 4. Nonvisualization of the long head biceps tendon, likely torn and retracted. 5. Severe AC joint OA. 6. A 7 mm cutaneous/subcutaneous soft tissue nodule posteriorly at the left shoulder. Correlate with physical exam findings. Possible sebaceous cyst.
== END | disposition home or self-care (01) ==
LOC: RADMRIMAIN 13:12
PROVIDERS: ATTEND Internal Medicine Hematology & Oncology
DX: M19.012 Primary osteoarthritis, left shoulder (principal); M25.412 Effusion, left shoulder; M65.812 Other synovitis and tenosynovitis, left shoulder; C82.13 Follicular lymphoma grade II, intra-abdominal lymph nodes; M25.312 Other instability, left shoulder; M62.89 Other specified disorders of muscle
CPT/HCPCS: 73223; A9585

== ENCOUNTER → 2023-12-27 | Outpatient (CLI) | payer OTHER ==
--- NOTE | 2023-12-28 20:21 | PE ---
EXAMINATION TYPE: PET CT fusion skull to thigh DATE OF EXAM: 12/27/2023 CLINICAL INDICATION:Male, 78 years old with history of C82.13FOLLICULAR LYMPHOMA GRADE II, INTRA-ABDO SARY; TECHNIQUE: Following the intravenous administration of 11.81 mCi of F-18 FDG, whole body images are performed from the skull base to the midthigh. Images are reviewed on the computer in the coronal, axial, and sagittal planes. Reconstructed rotating images are created on independent workstation and reviewed on the computer. A non-contrast CT is performed in conjunction with the PET scan. Glucose level 123 mg/dL CT DLP: 1015 mGycm, Automated exposure control for dose reduction was used. COMPARISON: CT None, PET/CT 05/10/2023, FINDINGS: Mediastinal SUV mean is 2.23. Hepatic parenchyma SUV mean is 2.4. SKULL BASE AND NECK: No suspicious radiotracer activity. No enlarged FDG avid lymph nodes identified. CHEST, MEDIASTINUM, AND HILAR REGION: * No suspicious radiotracer activity. * No enlarged FDG avid lymph nodes identified. ABDOMEN AND PELVIS: Persistent luciano mesentery with mesenteric adenopathy throughout the abdomen. There is low levels rad iotracer uptake within the lymph nodes throughout the mesentery max SUV 4.3 previously 2.3. There are overall the lymph nodes and the larger 1's measured appeared similar to prior. MUSCULOSKELETAL STRUCTURES: No suspicious radiotracer activity. OTHER CT: : Lenses are not visualized in the globes. Coronary artery marked severe atherosclerosis. T here is mild gynecomastia changes. Sternotomy wires are present. There is mild enlarged heart. The pu lmonary trunk is dilated up to 3.6 cm. Hepatic cysts are present. Scattered clonic diverticula are pr esent. Suspected postsurgical changes of the sacrum and right iliac bone without suspicious FDG activ ity. IMPRESSION: There is mild increased uptake within the lymph nodes within the mid abdomen mesentery. Overall when carefully examining a few of the larger lymph nodes they appear similar in size. It is impossible to evaluate all the lymph nodes for interval change in the overall 100.
== END | disposition home or self-care (01) ==
LOC: RADPETMAIN 08:21
PROVIDERS: ATTEND Internal Medicine Hematology & Oncology
DX: C82.13 Follicular lymphoma grade II, intra-abdominal lymph nodes (principal)
CPT/HCPCS: 78815; A9552

== ENCOUNTER → 2024-07-09 | Outpatient (CLI) | payer OTHER ==
--- NOTE | 2024-07-09 16:27 | PE ---
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 Images are reviewed on the computer in the coronal, axial, and sagittal planes. Reconstructed rotating images are created on independent workstation and reviewed on the computer. A non-contrast CT is performed in conjunction with the PET scan. Glucose level 117 mg/dL CT DLP: 1094.92 mGycm, Automated exposure control for dose reduction was used. COMPARISON: CT 08/25/2021, 01/12/2019, PET/CT 12/27/2023, 05/10/2023, 10/19/2022, 05/11/2022, MRI: None FINDINGS: Mediastinal SUV mean is 2.4. Hepatic parenchyma SUV mean is 3.1. SKULL BASE AND NECK: No suspicious radiotracer activity. No enlarged FDG avid lymph nodes identified. Similar FDG activity within the nasal soft tissues. Uptake within the pharyngeal tonsils with right greater than left. Maximum SUV is 6.9 Likely inflamma tion. CHEST, MEDIASTINUM, AND HILAR REGION: * No suspicious radiotracer activity. * No enlarged FDG avid lymph nodes identified. ABDOMEN AND PELVIS: Persistent luciano mesentery with extensive mesenteric adenopathy. There is low levels radiotracer upta ke within the lymph nodes throughout the mesentery with a maximum SUV of 5.5, previously 4.3 and prio r to that 2.3. The lymph nodes appear stable in size from prior exam. MUSCULOSKELETAL STRUCTURES: Increasing FDG activity within the left obturator externus with a maximum SUV of 8.9, previously 6.3. OTHER CT: : Lenses are not visualized in the globes. Coronary artery severe atherosclerosis. Mild marta ateral gynecomastia changes. Sternotomy wires are present. Mildly enlarged heart. The pulmonary trunk is dilated up to 3.6 cm. Bibasilar subsegmental atelectasis. Scattered hepatic cysts are present. Sc attered clonic diverticula are present. Suspected postsurgical changes of the sacrum and right iliac bone without suspicious FDG activity. Degenerative changes of the right shoulder with chronic bursal distention. Similar low-level FDG activity of a maximum SUV of 4.2. IMPRESSION: 1. Marginal increased radiotracer uptake within the lymph nodes within the mid abdominal mesentery f rom prior PET/CT. Demonstrates low-level activity just above background. The lymph nodes are relative ly stable in size from prior exam. 2. No new sites of lymphadenopathy identified. 3. Increased left obturator externa FDG activity from prior PET/CT. This probably relates to inflamm ation however metastasis is not excluded. Attention on follow-up PET/CT. [facility], , 07/09/2024 4:25 PM
== END | disposition home or self-care (01) ==
LOC: RADPETMAIN 08:13
PROVIDERS: ATTEND Internal Medicine Hematology & Oncology
CPT/HCPCS: 78815

== ENCOUNTER → 2025-03-12 | Outpatient (CLI) | payer OTHER ==
--- NOTE | 2025-03-13 17:45 | PE ---
EXAMINATION TYPE: PET CT fusion skull to thigh DATE OF EXAM: 03/12/2025 CLINICAL INDICATION:Male, 79 years old with history of C82.13 lymphoma; TECHNIQUE: Following the intravenous administration of 11.14 mCi of F-18 FDG, whole body images are performed from the skull base to the midthigh. Images are reviewed on the computer in the coronal, axial, and sagittal planes. Reconstructed rotating images are created on independent workstation and reviewed on the computer. A non-contrast CT is performed in conjunction with the PET scan. Glucose level 107 mg/dL CT DLP: 11.14 mGycm, Automated exposure control for dose reduction was used. COMPARISON: CT None, PET/CT 07/09/2024, 12/27/2023, 05/10/2023, 10/19/2022, 05/11/2022, MRI: None FINDINGS: Mediastinal SUV mean is 2.4. Hepatic parenchyma SUV mean is 2.9. SKULL BASE AND NECK: No suspicious radiotracer activity. No enlarged FDG avid lymph nodes identified. CHEST, MEDIASTINUM, AND HILAR REGION: No suspicious radiotracer activity. No enlarged FDG avid lymph nodes identified. ABDOMEN AND PELVIS: Persistent luciano mesentery with extensive adenopathy predominantly within the mesentery. Overall the lymph nodes appear relatively stable in size with low-level FDG activity from prior exam. Examples include a gastrohepatic 2.1 cm short axis lymph node with a maximum SUV 3.9, previously 2.8. Central mesenteric lymph nodes measuring up to 3.5 cm, previously measured up to 3.6 cm. Demonstrates a max SUV of 4.2, previously 4.7. Left common iliac chain 1.9 cm lymph node which previously measured 2.1 cm. Demonstrates a maximum LIRA V of 2.3, previously 2.3. MUSCULOSKELETAL STRUCTURES: Continued increased FDG activity within the left obturator externus with a maximum SUV of 6.2, previo usly 8.9, 6.3. OTHER CT: Bilateral aphakia. Coronary artery severe atherosclerosis. Minimal mucosal thickening of th e inferior bilateral axial sinuses. Mild mucosal thickening of the left sphenoid sinus. Minimal mucos al thickening of the left ethmoid sinus. Mild bilateral gynecomastia changes. Sternotomy wires are pr esent. Coronary artery calcifications and/or stents. Mildly enlarged heart. Epicardial leads identifi ed. The pulmonary trunk is dilated up to 3.4 cm. Bibasilar subsegmental atelectasis. Scattered hepati c cysts are present. Scattered clonic diverticula are present. Suspected postsurgical changes of the sacrum and right iliac bone without suspicious FDG activity. Degenerative changes of the right should er with chronic bursal distention. Similar low-level FDG activity of a maximum SUV of 4.2. Right ante rior chest wall subcutaneous 1.4 cm lesion consistent with a sebaceous cyst again. Small fat filled u mbilical hernia. Mild atherosclerotic calcification of the aorta and its branches. IMPRESSION: 1. Similar low-level radiotracer uptake within the lymph nodes predominantly within the mesentery fr om prior PET/CT. The lymph nodes are relatively stable in size from prior exam. Overall stable examin ation. 2. No new sites of lymphadenopathy identified. 3. Continued left obturator externa FDG activity from prior PET/CT. This probably relates to inflamm ation however metastasis is not excluded. Attention on follow-up PET/CT. [facility], , 03/13/2025 5:42 PM
== END | disposition home or self-care (01) ==
LOC: RADPETMAIN 10:14
PROVIDERS: ATTEND Internal Medicine Hematology & Oncology
DX: C82.13 Follicular lymphoma grade II, intra-abdominal lymph nodes (principal); R59.0 Localized enlarged lymph nodes
CPT/HCPCS: 78815; A9552